=== PATIENT | female | born 1975 ===

== ENCOUNTER 2017-10-28 09:43 | Outpatient (CLI) | payer OTHER ==
[~2017-10-28] VITALS: Ht 165.1 cm; Wt 45.4 kg
== END 2017-10-28 10:00 | disposition home or self-care (01) ==
LOC: OFIC 805 09:43
DX: J32.8 Other chronic sinusitis (principal); R09.81 Nasal congestion

== ENCOUNTER 2017-11-04 12:20 | Outpatient (CLI) | payer OTHER ==
[~2017-11-04] VITALS: Ht 152.4 cm; Wt 45.4 kg
== END 2017-11-04 12:40 | disposition home or self-care (01) ==
LOC: OFIC 805 12:20
DX: J32.8 Other chronic sinusitis (principal); R51 Headache; R09.81 Nasal congestion; H57.13 Ocular pain, bilateral